=== PATIENT | male | born 1945 | race Caucasian/White ===

== ENCOUNTER → 2020-08-20 15:19 | Outpatient (CLI) | payer OTHER, SELFPAY ==
--- NOTE | 2020-08-20 15:37 | RAD_ITS ---
STUDY: X-RAY - CERVICAL SPINE REASON FOR EXAM: Male, 75 years old. NECK PAIN. NO RECENT INJURY. PAIN IS MID-LOWER NECK POSTERIORLY TECHNIQUE: 3 view(s) of the cervical spine were obtained. COMPARISON: None FINDINGS: Normal anterior atlantoaxial articulation. Normal odontoid process. There is straightening of the normal cervical lordosis. There is multi-level endplate spondylosis. There is multi-level degenerative disc disease with multilevel disc space narrowing. Normal visualized intervertebral neuroforamina. There are atherosclerotic vascular calcifications of the carotid arteries. RAD/Cerv Spine 2 or 3 Views IMPRESSION: Degenerative changes and spondylosis. Massive calcification of the carotid arteries bilaterally. Electronically Signed: Nicko Purdy, at 15:38 EST , Service support ,
--- NOTE | 2020-08-20 15:37 | RAD_ITS ---
STUDY: X-RAY - LUMBAR SPINE REASON FOR EXAM: Male, 75 years old. BACK PAIN. NO RECENT INJURY TECHNIQUE: 2 view(s) of the lumbar spine were obtained. COMPARISON: None FINDINGS: Normal lumbar lordosis. There is no substantial scoliosis. There is a normal alignment of the vertebrae. There is multilevel endplate spondylosis of the lumbar vertebrae. Normal disc space heights. Metallic radiation seeds are seen within the prostate. RAD/Lumbar Spine 2 or 3 Views IMPRESSION: Mild degree of endplate spondylosis. Electronically Signed: Nicko Purdy, at 15:40 EST , Service support ,
== END ==
PROVIDERS: PCP Family Medicine; Referring Provider Anesthesiology Pain Medicine; Visit Provider Anesthesiology Pain Medicine
DX: M54.2 Cervicalgia (principal); M54.5 Low back pain
CPT/HCPCS: 72040; 72100

== ENCOUNTER 2021-01-11 08:58 | Day surgery (SDC) | payer OTHER, SELFPAY ==
[2021-01-08 15:26] LABS: Anion Gap 5 (5-15); BUN 14 mg/dL (7-18); BUN/Creat Ratio 12.3 RATIO (10-20); Calcium,Total 9.1 mg/dL (8.5-10.1); Chloride 103 mmol/L (98-107); Creatinine, Serum 1.14 mg/dL (0.70-1.30); EST Glomerular Filtration Rate 67 mL/min (>60); Est Glom Filt Rate - Afr Amer 80 mL/min (>60); Glucose 145 mg/dL (74-106); Potassium 4.3 mmol/L (3.5-5.1); Sodium Level 137 mmol/L (136-145)
[2021-01-11] VITALS (11 sets, daily range): BP systolic 124–152; BP diastolic 60–85; PULSE 61–67; RESP 14–18; TEMP 36.3–37.5; O2SAT 95–100; BMI 28.1
--- NOTE | 2021-01-11 | IMM_PTH ---
PATIENT: MAYA PERLA LOC: [facility] [place] U#:[id number] AGE/SX: 75/M ROOM: RE01/11/[address]: Dr. Javier Young MD : 1945 BED: DIS: 01/12/2021 SPEC #: [id number] RECD: 01/15/21 12:43 STATUS: SOUT REQ #: [id number] HARMEET: 01/11/21 00:[address]: Javier Young DEPT: IMMUNOHISTOCHEMISTRY RECD BY: Christine Briseno ENTERED: 01/15/21 12:45 SP TYPE: IMMUNO OTHR DR: Dr. Westley Cohen MD Tissues: Prostate, NOS Procedures: 34BE12 (add) P40 (add) 34BE12 (initial) PHYSICIAN & INSTITUTION [place] [id number] SPECIMEN INFORMATION: Tissue Source: Prostate tissue Clinical Info: BPH with obstruction Specimen Number: [id number] #1 & 8 CPT code: 50143, 09385 x3 METHODOLOGY: Deparaffinized sections of prefer/formalin-fixed tissue or PAP/DQ stained slides are incubated with monoclonal/polyclonal antibodies/oligonucleotide probes. Localization is made via biotin free immunoperoxidase method. Appropriate controls are performed and reacted as expected. Results on target cell population are indicated in the following table: RESULTS: ANTIBODY / CLONE RESULT Block 1 34BE12 (34BE12) positive P40 (BC28) negative Block 8 34BE12 (34BE12) positive P40 (BC28) positive These tests were developed and their performance characteristics determined by [facility]. They may not have been cleared or approved by the U.S. Food and Drug Administration. The FDA has determined that such clearance or approval is not necessary. The above immunohistochemical/dualISH markers are ordered and reviewed by the Pathologist. INTERPRETATION: Prostate tissue, transurethral resection: Benign prostatic tissue. AM:addis 01/16/2021
[2021-01-11 09:35] LABS: Bedside Glucose 121 mg/dL (70-110)
--- NOTE | 2021-01-11 10:35 | PROS_PTH ---
PATIENT: MAYA PERLA LOC: [facility] [place] U#:[id number] AGE/SX: 75/M ROOM: RE01/11/[address]: Dr. Javier Young MD : 1945 BED: DIS: 01/12/2021 SPEC #: [id number] RECD: 01/11/21 14:35 STATUS: LEAH GUILLERMO #: [id number] HARMEET: 01/11/21 10:[address]: Javier Young DEPT: SURGICAL PATHOLOGY RECD BY: Shaina Salinas ENTERED: 01/14/21 08:49 SP TYPE: TURP OTHR DR: Dr. Westley Cohen MD Tissues: Prostate, NOS Procedures: Surgery Specimen Level IV HEADER OPERATION: Cysto, TUR prostate, Olymp[employer] PRE-OP DIAGNOSIS: BPH with obstruction TISSUE SUBMITTED: Prostate tissue MICROSCOPIC DIAGNOSIS Prostate, transurethral resection: Benign nodule hyperplasia, glandular and stromal types. Chronic inflammation with focal acute inflammation. Urothelium with mild chronic inflammation. See comment. AM:addis 01/15/2021 COMMENT Immunohistochemistry ([id number]) supports the above diagnosis. MICROSCOPIC DESCRIPTION Slides are reviewed. GROSS DESCRIPTION Received is one container labeled with the patient's name and designated prostate tissue. The specimen consists of multiple irregular fragments of pink-wharton, rubbery, soft tissue that in aggregate weigh 12.1 gm and measure in aggregate 5 x 5 x 2.5 cm. A few blood clots are also noted. Also present mixed with tissue are multiple pieces of metallic clip. Engraver tissue is submitted in ten cassettes. / SJ:addis 01/14/21 TC:2 CPT: 58852
--- NOTE | 2021-01-11 11:04 | PCM.HP.STD ---
HPI - General HPI Narrative MAYA PERLA, is a 75 M who presents with retention of urine he does have a very stretched out chronically stretched out bladder organ to proceed with a TURP. PFSH Medical History Cataracts, bilateral Diabetes Essential and other specified forms of tremor Hale catheter in place GERD (gastroesophageal reflux disease) Hearing loss, left Hearing loss, right Hiatal hernia Hx of skin cancer, basal cell Hypertension Injury of head and neck Medical cannabis use Neuropathy Non-smoker Home Medications Simbrinza 1 drp OPHTHALMIC (EYE) DAILY 01/07/21 [History Last Taken Unknown] atorvastatin 10 mg PO QHS 01/07/21 [History Last Taken Unknown] bupropion HCl 300 mg PO DAILY 01/07/21 [History Last Taken Unknown] fluoxetine 10 mg PO DAILY 01/07/21 [History Last Taken Unknown] fluticasone propionate [Flonase Allergy Relief] 1 spray INTRANASAL DAILY 01/07/21 [History Last Taken Unknown] latanoprost 1 drp OPHTHALMIC (EYE) DAILY 01/07/21 [History Last Taken Unknown] lisinopril 2.5 mg PO DAILY 01/07/21 [History Last Taken 01/11/21] loratadine [Claritin] 10 mg PO DAILY 01/07/21 [History Last Taken Unknown] metformin 500 mg PO DAILY 01/07/21 [History Last Taken Unknown] omeprazole 20 mg PO DAILY 01/07/21 [History Last Taken 01/11/21] primidone 50 mg PO QHS 01/07/21 [History Last Taken 01/11/21] propranolol 80 mg PO BID 01/07/21 [History Last Taken 01/11/21] ciprofloxacin HCl [Cipro] 500 mg PO BID #10 tab 01/11/21 [Rx Last Taken Unknown] Allergy/AdvReac Type Severity Reaction Status Date / Time No Known Allergies Allergy Verified 01/11/21 09:21 Surgical History (Updated 01/07/21 @ 08:31 by Kalpana Winter) Hx of circumcision Social History Smoking Status: Never smoker Vital Signs Vital Signs Vital Signs: 01/11/21 09:26 Temperature 99.5 F H Temperature Source Temporal Pulse Rate 62 Respiratory Rate 16 Respiratory Pattern Normal Blood Pressure 130/81 H Blood Pressure Mean 97 Blood Pressure Source Monitor Blood Pressure Position Sitting Blood Pressure Location Left Arm Pulse Ox 99 Oxygen Delivery Method Room Air Physical Exam Const alert and oriented x3 General Appearance: cooperative HEENT normocephalic, head/scalp atraumatic, EAC's normal and TM's normal bilaterally Eyes PERRL and EOMs intact bilaterally Pupil: sluggish Neck no lymphadenopathy, supple and no JVD General: trachea midline Lymph Lymphatic: no lymphadenopathy noted, lymphedema and lymphadenopathy Resp normal respiratory effort, normal air movement and clear to auscultation bilaterally Cardio regular rate, regular rhythm and peripheral pulses 2+ throughout GI soft to palpation, non-tender and non-distended Extremity normal capillary refill and no clubbing, cyanosis or edema General Extremity: no tenderness to palpation of joints or extremities Skin no rashes or lesions noted General Skin Exam: turgor normal Lesions: no lesions Rashes: no rashes Neuro CN's II-XII intact bilaterally Speech: speech normal Motor Exam: strength 5/5 throughout; Negative for general weakness Psych thought process normal, cooperative and affect normal Appearance: appropriate Lab / Micro Data Result Diagrams: 01/08/21 14:37 01/08/21 14:37 Labs: Laboratory Results - last 24 hr 01/11/21 09:28 POC Glucose 121 H Assessment & Plan Assessment/Plan (1) BPH with obstruction/lower urinary tract symptoms: PLAN: Presents with BPH and obstruction a chronically obstructed distended stretched out bladder we can proceed with a TURP today he understands is possible that even if we do the surgery he may not be able to urinate afterwards he may need still need a catheter he may need to learn self and then catheterization he is aware this long discussion in the office regarding the situation but to proceed with a TURP in hopes that he can regain normal voiding.
--- NOTE | 2021-01-11 11:06 | PCM.DC ---
Discharge Instructions Diet Discharge Diet: No restrictions Activity Discharge Activity: May not drive while taking narcotic pain medications. (for 3 days.) May shower in (days): 1 Dressing / Incision Call your doctor if your incision/area has: Continuous Slow Oozing, Increased Pain/ Swelling, Increased Redness and Foul Smelling Discharge Call your doctor if you observe: Fever of 101 or Higher, Numbness or Tingling, Shortness of breath, Dizziness, Calf discomfort and Uncontrolled pain Cleanse incision/area with: Keep Dressing Clean & Dry Follow Up Care Please Follow Up With: Javier Young MD When: Call [phone] for an appointment Test Results: Test results from this visit will be discussed in further detail at your follow-up appointment, if applicable. Discharge Plan Admission Primary Reason for Your Visit: TURP Attending Provider: Javier Young Primary Care Provider: Westley Cohen Instructions Patient Instructions: Transurethral Resection of the Prostate (TURP) Discharge Orders/Prescriptions Prescriptions: New ciprofloxacin HCl [Cipro] 500 mg tablet 500 mg PO BID Qty: 10 RF: 0 Continued latanoprost 0.005 % Drops 1 drp OPHTHALMIC (EYE) DAILY RF: 0 primidone 50 mg Tablet 50 mg PO QHS RF: 0 atorvastatin 10 mg Tablet 10 mg PO QHS RF: 0 propranolol 80 mg Capsule,Extended Release 24 Hr 80 mg PO BID RF: 0 fluoxetine 10 mg Capsule 10 mg PO DAILY RF: 0 fluticasone propionate [Flonase Allergy Relief] 50 mcg/actuation [place],Suspension 1 spray INTRANASAL DAILY RF: 0 metformin 500 mg Tablet Extended Release 24 Hr 500 mg PO DAILY RF: 0 lisinopril 2.5 mg Tablet 2.5 mg PO DAILY RF: 0 loratadine [Claritin] 10 mg Tablet 10 mg PO DAILY RF: 0 bupropion HCl 300 mg Tablet Extended Release 24 Hr 300 mg PO DAILY RF: 0 omeprazole 20 mg Tablet,Delayed Release (Dr/Ec) 20 mg PO DAILY RF: 0 Simbrinza 1-0.2 % Drops,Suspension 1 drp OPHTHALMIC (EYE) DAILY RF: 0 Referrals / Follow Up: Javier Young MD [STAFF PHYSICIAN] - Westley Cohen MD [Primary Care Provider] -
[2021-01-11] MEDS: Cefazolin 2 GM in 0.9% Normal Saline 100 ML IV (11:15)
--- NOTE | 2021-01-11 12:21 | PCM.OPRPT ---
Problems Associated Problem List Diagnoses (1) BPH with obstruction/lower urinary tract symptoms: Report of Operation Date of Procedure: 01/11/21 Pre-Operative Diagnosis: bph with obstruction. Post-Operative Diagnosis: same Surgery/Procedure Performed:: TURP Description of Surgical Findings:: In the preoperative setting I discussed with the patient how the surgery would be done with expect afterwards. We discussed how a prostate resection is done and we discussed the risk of the surgery including, bleeding, infection, retrograde ejaculation, changes with ejaculation or intercourse,. We discussed the possibility that the resection of the prostate may not alleviate his urinary symptoms. We discussed the small risk of developing scar tissue along the urethral channel and strictures. We also discussed the chance of the prostate could grow back and he may need further surgery or treatment in the future for prostate problems. Patient was taken back to the operating room, timeout procedure was performed, he was identified and marked and placed on the operating room table. He underwent general anesthesia. He was placed in dorsolithotomy position. Penis and testicles were prepped and draped in usual sterile fashion. Went into the bladder using the visual obturator with a resectoscope. Once inside the bladder identified the right and left ureteral orifice. I then identified the prostate and the anatomy of the prostate. I marked out the area of the sphincter and the verumontanum was identified. I then proceeded with the prostate resection first resected the median lobe. And then resected the right lobe of the prostate. Then to resect the left lobe of the prostate. I then resected the apical tissue of the prostate. Made sure that there was no injury to the sphincter or the verumontanum was still intact. At the end of the resection all the chips were Ellik out of the bladder. I then identified the left and right ureteral orifice and these were confirmed to be in good position and effluxing and not injured. The resectoscope was removed, a 22 Croatian catheter was placed into the bladder on continuous irrigation. And the urine was fairly light pink color and draining normally. He was taken back to the PACU in good condition. Surgeon: Hector Type of Anesthesia: General Drains: 22 fr Admit VTE Documentation VTE Present on Admission: No VTE Mechan Device Prophylaxis: SCD's
[2021-01-11 12:46] LABS: Bedside Glucose 122 mg/dL (70-110)
[2021-01-11] MEDS: Ketorolac 15 MG/ML Vial IV (13:21)
[2021-01-11] MEDS: Lactated Ringers 1,000 ML 100 ML IV (16:55)
[2021-01-11] MEDS: Atorvastatin Calcium 10 MG Tablet PO (20:47)
[2021-01-11] MEDS: Propranolol 40 MG Tablet 80 MG PO (20:47)
[2021-01-11] MEDS: Primidone 50 MG Tablet PO (20:47)
[2021-01-11] MEDS: Ciprofloxacin 400 MG/200 ML BAG 200 MG IV (22:30)
[2021-01-12] MEDS: Ketorolac 15 MG/ML Vial IV (05:41)
[2021-01-12] MEDS: 0.9% Saline Lock 10 ML Syringe IV ×2 (05:41→13:16)
[2021-01-12 07:01] VITALS: BP 141/76; PULSE 57; RESP 16; TEMP 36.6; O2SAT 96
[2021-01-12 09:01] VITALS: BP 165/85; PULSE 63; RESP 16; TEMP 36.8; O2SAT 98
[2021-01-12] MEDS: buPROPion (XL) 300 MG TABLET.XL PO (09:05)
[2021-01-12] MEDS: Loratadine 10 MG Tablet PO (09:05)
[2021-01-12] MEDS: Pantoprazole Sodium 20 MG Tablet PO (09:05)
[2021-01-12] MEDS: metFORMIN (XR) 500 MG Tablet PO (09:05)
[2021-01-12] MEDS: Propranolol 40 MG Tablet 80 MG PO (09:05)
[2021-01-12] MEDS: FLUoxetine 10 MG Capsule PO (09:05)
[2021-01-12] MEDS: Lisinopril 2.5 MG Tablet PO (09:05)
[2021-01-12] MEDS: Latanoprost 0.005% 1 Bottle 1 DRP OPHTHALMIC (09:06)
[2021-01-12] MEDS: Ciprofloxacin 400 MG/200 ML BAG 200 MG IV (09:07)
[2021-01-12] MEDS: Acetaminophen 325 MG Tablet PO (13:16)
[2021-01-12 14:41] VITALS: BP 168/86; PULSE 61; RESP 18; TEMP 36.4; O2SAT 95
[2021-01-12 16:32] VITALS: BP 149/92; PULSE 61; RESP 18; TEMP 36.4; O2SAT 97
== END 2021-01-12 16:38 | disposition home or self-care (01) ==
LOC: SDC 08:58 → AC 09:03 → MS3 12:50
PROVIDERS: Anesthesiology; PCP Family Medicine; Referring Provider Urology; Visit Provider Urology
PROC: (CPT 52630; principal; 2021-01-11 10:25)
DX: N40.1 Benign prostatic hyperplasia with lower urinary tract symptoms (principal); N13.8 Other obstructive and reflux uropathy; N41.1 Chronic prostatitis; E11.9 Type 2 diabetes mellitus without complications; K21.9 Gastro-esophageal reflux disease without esophagitis; I10 Essential (primary) hypertension; Z79.84 Long term (current) use of oral hypoglycemic drugs; Z79.899 Other long term (current) drug therapy
CPT/HCPCS: 00914; 52630; 36415; 80048; 82962; 83036; 88305; 88341; 88342; 99251; J7120; A4216; G0463; J0744